=== PATIENT | male | born 1970 | race Caucasian/White ===

== ENCOUNTER 2022-11-19 08:26 | Emergency (ER) | payer SELFPAY ==
[~2022-11-19] VITALS: Ht 170.2 cm; Wt 73.5 kg
--- NOTE | 2022-11-19 09:00 | NUR ---
Rory at bedside w/ pt.
--- NOTE | 2022-11-19 09:05 | NUR ---
URINE SAMPLE COLLECTED AND SENT TO LAB
[2022-11-19 09:08] LABS: BASOPHILS % (AUTO) 0.4 % (0.0-2.0); EOSINOPHILS % (AUTO) 0.5 % (0.0-6.0); HEMATOCRIT 44 % (39-51); HEMOGLOBIN 14.6 g/dL (13.5-17.5); LYMPHOCYTES # (AUTO) 1.5 K/uL (0.8-4.8); LYMPHOCYTES % (AUTO) 21.8 % (20.0-44.0); MEAN CORPUSCULAR HGB CONC 33 g/dl (31.0-36.0); MEAN CORPUSCULAR VOLUME 87 fL (80-96); MONOCYTES # (AUTO) 0.7 K/uL (0.1-1.30); MONOCYTES % (AUTO) 9.7 % (2.0-12.0); NEUTROPHILS # (AUTO) 4.7 K/uL (1.8-8.9); NEUTROPHILS % (AUTO) 67.6 % (43.0-81.0); PLATELET COUNT (AUTO) 224 K/uL (150-450); RED BLOOD CELL COUNT(AUTO) 5.07 MIL/uL (4.5-6.0); WHITE BLOOD COUNT (AUTO) 6.9 K/uL (4.3-11.0)
[2022-11-19 09:12] LABS: BILIRUBIN,URINE 1+ (NEGATIVE); COLOR,URINE YELLOW (YELLOW); LEUKOCYTE ESTERASE ,URINE NEGATIVE (NEGATIVE); NITRITE, URINE NEGATIVE (NEGATIVE); PROTEIN,URINE TRACE mg/dl (NEGATIVE); UGLUCOSE NEGATIVE (NEGATIVE); UROBILINOGEN,URINE 0.2 EU/dL (0.2)
[2022-11-19 09:19] LABS: CALCIUM, SERUM 8.7 mg/dL (8.5-10.1); CARBON DIOXIDE 27 mmol/L (21-32); CHLORIDE 103 mmol/L (98-107); CREATININE 0.7 mg/dL (0.6-1.3); GLUCOSE 102 mg/dL (74-106); POTASSIUM 4.5 mmol/L (3.5-5.1); SODIUM SERUM 138 mmol/L (136-145); UREA NITROGEN, BLOOD 14 mg/dL (7-18)
[2022-11-19 09:25] LABS: ALANINE AMINOTRANSFERASE 30 U/L (12-78); ALBUMIN 3.8 g/dL (3.4-5.0); ALKALINE PHOSPHATASE 94 U/L (46-116); ASPARTATE AMINOTRANSFERASE 45 U/L (15-37); BILIRUBIN,DIRECT 0.1 mg/dL (0.0-0.2); BILIRUBIN,TOTAL 0.7 mg/dL (0.2-1.0); TOTAL PROTEIN, SERUM 7.5 g/dL (6.4-8.2)
[2022-11-19 09:30] LABS: BACTERIA,URINE Few /HPF (None Seen); RBC,URINE 0-2 /HPF (0-2); SQUAMOUS EPITHELIAL CELL,UR Few /HPF (None Seen); WBC,URINE 0-2 /HPF (0-3)
[2022-11-19 09:31] LABS: SPERM,URINE Few /HPF (None Seen)
[2022-11-19 09:39] LABS: ALCOHOL, BLOOD < 3 mg/dL (0-0)
[2022-11-19 09:42] LABS: ACETAMINOPHEN 0 ug/ml (10-30)
[2022-11-19] MEDS ORDERED: LORAZEPAM INJ 2 MG/ML VIAL IM ONE (11:30)
[2022-11-19] MEDS ORDERED: HALOPERIDOL LACTATE INJ 5 MG/ML VIAL IM ONE (11:30)
[2022-11-19] MEDS ORDERED: LORAZEPAM INJ 2 MG/ML VIAL ONE (11:43)
[2022-11-19] MEDS ORDERED: HALOPERIDOL LACTATE INJ 5 MG/ML VIAL ONE (11:43)
--- NOTE | 2022-11-19 11:55 | NUR ---
ATIVAN AND HALDOL IM GIVEN INDICATED, REGLA WELL
--- NOTE | 2022-11-19 14:23 | NUR ---
NO ANALYSIS REPORTING DEVELOPER ON-CALL ALL([id number]). WILL CALL [facility] WHEN ON SHIFT AT 1700.
--- NOTE | 2022-11-19 14:26 | NUR ---
SPOKE WITH PEPPER. PT IS CURRENTLY STILL UNRESPONSIVE. PEPPER ADVISED THAT PT NEEDS TO BE RESPONSIVE IN ORDER FOR CONSULT TO TAKE PLACE, WILL FOLLOW UP WITH [facility] AT 1700.
--- NOTE | 2022-11-19 16:44 | NUR ---
CALLED PEPPER NGUYEN AND REPORTED THAT PT IS NOW VERBALLY COMMUNICATING. PEPPER SAID SHE WILL GIVE REPORT AND [facility] WILL COME TO BEDSIDE. ETA 1 HOUR
--- NOTE | 2022-11-19 16:47 | NUR ---
SPOKE WITH PT AT BEDSIDE, VERBALLY CONFIRMED THAT HE HAS NO INSURANCE
--- NOTE | 2022-11-19 18:44 | NUR ---
FOLLOWED UP WITH [facility], SAID THEY WILL BE HERE IN 1 HOUR ETA.
--- NOTE | 2022-11-19 19:34 | NUR ---
[facility] USER ACCEPTANCE TESTER AT BEDSIDE FOR EVAL.
--- NOTE | 2022-11-19 19:44 | NUR ---
DISCHARGED PAPERWORKS SIGNED, AWAITING FOR OTHER OFFICERS FOR ASSISTANCE
[2022-11-19 19:48] VITALS: BP 128/85
== END 2022-11-19 21:11 ==
LOC: ER 08:33 → EDBD 08:33 → ER 21:11
DX: R46.1 Bizarre personal appearance (principal)
CPT/HCPCS: 99284; 96372 ×2; 85025; 80048; 80076; 81001; 36415; 80143; 80320; 80307; J2060; J1630; G0480